=== PATIENT | female | born 1945 | race Caucasian/White ===

== ENCOUNTER 2016-08-11 15:00 | Emergency (ER) ==
[2016-08-11 16:00] LABS: URINE CULTURE NEEDED? NO; URINE MICRO REVIEW NEEDED? NO; URINE SOURCE CLEAN CATCH
[2016-08-11 16:20] LABS: BILIRUBIN URINE NEGATIVE (NEGATIVE); BLOOD URINE NEGATIVE (NEGATIVE); COLOR YELLOW; GLUCOSE URINE NEGATIVE (NEGATIVE); LEUKOCYTES URINE NEGATIVE (NEGATIVE); NITRITE URINE NEGATIVE (NEGATIVE); PROTEIN URINE NEGATIVE (NEGATIVE); SP GRAVITY URINE 1.014; TURBIDITY URINE CLEAR (CLEAR); UROBILINOGEN URINE NORMAL (NORMAL)
[2016-08-11 16:22] LABS: UR EPITHELIAL CELLS <10 /HPF (<10); URINE BACTERIA NEGATIVE /HPF; URINE RBC <10 /HPF (<10); URINE WBC <10 /HPF (<10)
--- NOTE | 2016-08-11 16:30 | PROVIDER DOCUMENTATION ---
HPI-Female /OB/Breast - General Chief Complaint: Female Stated Complaint: BLEED Time Seen by Provider: 08/11/16 16:24 Source: reports: patient Allergies/Adverse Reactions: Patient Allergies Allergy/AdvReac Type Severity Reaction Status Date / Time No Known Allergies Allergy Verified 08/11/16 19:26 Home Medications: Home Medication List Medication Instructions Recorded Confirmed Last Taken Type Lamotrigine [Lamictal] 150 mg PO BID 11/07/12 08/11/16 08/11/16 History Alprazolam [Xanax] 0.5 mg PO TID 02/25/13 08/11/16 08/11/16 History B Complex with Vitamin C [Vitamin 1 each PO DAILY 08/04/13 08/11/16 08/11/16 History B&C] Fluticasone [address] 1 spray CARL DAILY 01/30/15 08/11/16 08/11/16 History [Flonase] Docusate Sodium [Colace] 100 mg PO BID PRN PRN #20 capsule 08/11/16 Unknown Rx Hydrocortisone Supp [Anusol-Hc 25 mg UT BID #30 supp 08/11/16 Unknown Rx Supp] Levothyroxine [Synthroid] 25 microgm PO DAILY 08/11/16 08/11/16 08/11/16 History Phenazopyridine HCl [Pyridium] 100 mg PO TID #6 tablet 08/11/16 Unknown Rx Polyethylene Glycol 3350 [Miralax] 17 gm PO DAILY #14 powd.pack 08/11/16 Unknown Rx Vortioxetine Hydrobromide 5 mg PO QAM 08/11/16 08/11/16 08/11/16 History [Trintellix] - History of Present Illness-Female /OB Nature of Presenting Problem: 70 y/o F c/o blood in urine, dysuria, constipation x 1 day. States that she has been taking laxatives for constipation. Reports some body aches, worse in suprapubic region. LBM was today; hard/guera s/p taking milk of magnesia. Denies any vomiting, fever/chills, cough. States hx of prolapsed uterus. Unsure if bleeding is or rectal in nature. Reports spotting, not bleeding, noted in her underwear. Denies kidney stones. Review of Systems - Adult - REVIEW OF SYSTEMS - ADULT Constitutional: reports: no symptoms reported. denies: chills, fever Eyes: reports: no symptoms reported. denies: blurred vision, double vision Ears, Nose, Mouth & Throat: reports: no symptoms reported. denies: ear pain, nose pain Cardiovascular: reports: no symptoms reported Respiratory: reports: no symptoms reported. denies: cough, shortness of breath Gastrointestinal: reports: see HPI, abdominal pain, constipation. denies: nausea, vomiting Genitourinary: reports: see HPI, dysuria, other. denies: frequency Musculoskeletal: reports: see HPI, back pain (low to mid), muscle aches. denies : joint pain, joint swelling Integumentary: reports: no symptoms reported. denies: nail changes, rash Neurological: reports: no symptoms reported. denies: numbness, paresthesia Psychiatric: reports: no symptoms reported Endocrine: reports: no symptoms reported. denies: cold intolerance, heat intolerance Hematologic/Lymphatic: reports: no symptoms reported. denies: easy bruising, prolonged bleeding Allergic/Immunologic: reports: no symptoms reported All Other Systems: Reviewed and Negative Past History - Adult - PAST MEDICAL HISTORY-ADULT Review of Records: reports: Nursing Assessment Review, Medications Reviewed Major Childhood Illnesses: reports: denies history Cardiovascular: reports: hyperlipidemia, other (tachycardia) Respiratory: reports: denies history Gastrointestinal: reports: denies history Obstetrical/Gynecological: reports: denies history Genitourinary: reports: denies history Musculoskeletal: reports: denies history Neurological: reports: denies history Psychiatric: reports: anxiety, depression Endocrine/Immune: reports: denies history, thyroid disorder Other Conditions: reports: denies history - PRIOR SURGERIES/PROCEDURES Surgical/Procedure History: reports: tonsillectomy, other (d&C) - PRIOR HOSPITALIZATIONS Prior Hospitalizations: reports: none - IMMUNIZATION STATUS Childhood Immunizations: See Nurse Assessment Flu Vaccine: See Nurse Assessment - FAMILY HISTORY Family History: reviewed, not pertinent - SOCIAL HISTORY Smoking: denies Alcohol Use Frequency: never Physical Exam-General - PHYSICAL EXAM-ADULT Initial Vital Signs Reviewed: Yes - CONSTITUTIONAL General Appearance: alert, anxious - EYES Eyes: pink conjunctivae - HEAD, EARS, NOSE, MOUTH & THROAT HENMT: normocephalic/atraumatic, moist mucous membranes - NECK Neck: normal inspection - RESPIRATORY Respiratory: lungs clear, normal breath sounds. negative: crackles, rales, rhonchi, stridor, wheezing - CARDIOVASCULAR Cardiovascular: regular rate, rhythm. negative: bradycardia, tachycardia - GASTROINTESTINAL (ABDOMEN) Abdominal Exam: normal bowel sounds, soft, tenderness (mild, generalized). negative: distended, guarding, rigid, rebound - GENITOURINARY Female Genitalia/Pelvic Exam: external exam normal. negative: active bleeding, blood, discharge, herpes-like ulcerations Rectal Exam: normal rectal tone. negative: black stool, blood streaked stool, hemorrhoids, other (no anal fissures noted) Hemoccult Exam: heme negative stool - MUSCULOSKELETAL Back Exam: normal inspection Extremity: normal gait - SKIN Integumentary: normal color, normal turgor, warm/dry - NEUROLOGIC Neurologic: negative: aphasia - PSYCHIATRIC Psych/Mental Status: normal mood/affect, normal thought content, normal thought process, oriented x 3 Progress - PLAN OF CARE/RESULTS Progress/Plan/Lab Results: Laboratory Tests 08/11/16 15:22 Urine Source CLEAN CATCH Urine Color YELLOW Urine Turbidity CLEAR Urine pH 7.0 Ur Specific [place] 1.014 Urine Protein NEGATIVE Ur Glucose (Stick) NEGATIVE Ur Ketones (Stick) NEGATIVE Urine Blood NEGATIVE Urine Nitrite NEGATIVE Urine Bilirubin NEGATIVE Urobilinogen Dipstick NORMAL Urine Leukocytes NEGATIVE Urine WBC (Auto) <10 Urine RBC (Auto) <10 U Epithel Cells (Auto) <10 Urine Bacteria (Auto) NEGATIVE Orders Category Date Time Status FLAT/UPRIGHT ABD/1 VIEW CHEST [RAD] Stat Exams 08/11/16 16:37 Completed OCCULT BLOOD SCREENING [STOOL] Stat Lab 08/11/16 19:00 Completed UA Reflex [URINALYSIS W/POSS RFLX CULT] [URINALYSIS] Lab 08/11/16 15:22 Completed Stat Vital Signs Temp Pulse Resp BP Pulse Ox 08/11/16 20:15 98.1 F 65 16 116/65 96 08/11/16 15:10 98.1 F 72 16 150/67 97 No Known Allergies Allergy (Verified 08/11/16 19:26) Lamotrigine [Lamictal] 150 mg PO BID 11/07/12 Alprazolam [Xanax] 0.5 mg PO TID 02/25/13 B Complex with Vitamin C [Vitamin B&C] 1 each PO DAILY 08/04/[address] [Flonase] 1 spray CARL DAILY 01/30/15 Docusate Sodium [Colace] 100 mg PO BID PRN PRN #20 capsule 08/11/16 Hydrocortisone Supp [Anusol-Hc Supp] 25 mg UT BID #30 supp 08/11/16 Levothyroxine [Synthroid] 25 microgm PO DAILY 08/11/16 Phenazopyridine HCl [Pyridium] 100 mg PO TID #6 tablet 08/11/16 Polyethylene Glycol 3350 [Miralax] 17 gm PO DAILY #14 powd.pack 08/11/16 Vortioxetine Hydrobromide [Trintellix] 5 mg PO QAM 08/11/16 DISORDER OF THYROID, UNSPECIFIED (08/11/16) HYPERLIPIDEMIA, UNSPECIFIED (08/11/16) ANXIETY DISORDER, UNSPECIFIED (08/11/16) CONSTIPATION, UNSPECIFIED (08/11/16) MYALGIA (08/11/16) ABNORMAL UTERINE AND VAGINAL BLEEDING, UNSPECIFIED (08/11/16) GENERALIZED ABDOMINAL TENDERNESS (08/11/16) UNSPECIFIED ABDOMINAL PAIN (08/11/16) DYSURIA (08/11/16) HEMATURIA, UNSPECIFIED (08/11/16) OTHER FEEDER/FOLDER (CURRENT) DRUG THERAPY (08/11/16) I&O 08/12/16 08/13/16 08/14/16 06:59 06:59 06:59 Output Total 80 Balance -80 - XRAY 1 XRAY Study: Chest, Abdomen Impression: See EMR Report (Mild constipation. No evidence of acute disease. - per Dr. Hyatt) Departure - Departure Time of Disposition Order: 19:53 DIAGNOSIS: Constipation Qualifiers: Constipation type: unspecified constipation type Qualified Code(s): K59.00 - Constipation, unspecified Disposition: HOME 01 Certified Medical Emergency: Emergent Condition: Stable Additional Instructions: Follow up with SAFETY ADMIN ASSISTANT for further evaluation. Take medications as directed. Return if symptoms get worse or bleeding recurs. ED Follow Up Instructions: You have been treated by a care provider in the Emergency Department. These instructions are being provided to you so you can have an understanding of how to care for yourself upon discharge. Upon discharge from the Emergency Department, you are responsible for making arrangements for follow-up care by a physician of your choice. Take all prescribed medications as directed. Return to the Emergency Department immediately for any new or worsening symptoms. You may call the Physician Referral phone number at [phone] to obtain a list of Physicians who are taking new patients. Prescriptions: Hydrocortisone Supp [Anusol-Hc Supp] 25 mg UT BID #30 supp Docusate Sodium [Colace] 100 mg PO BID PRN PRN #20 capsule PRN Reason: Constipation Polyethylene Glycol 3350 [Miralax] 17 gm PO DAILY #14 powd.pack Phenazopyridine HCl [Pyridium] 100 mg PO TID #6 tablet Referrals: Jeremy Cardona MD [Primary Care Provider] - Arash Walsh MD [STAFF PHYSICIAN] - Forms: Return to School/Parent Work Instructions: Constipation, Adult Attestation - Physician/ LENNY Attestation Patient care was provided by Advanced Practice Provider:: Yes Advanced Practice Provider:: Elizabeth Syed Advanced Practice Provider documentation review:: The Mid-level provider documentation, treatment plan and medical decision making was reviewed by the physician who agrees with all treatment and medical decision making by the MLP.
--- NOTE | 2016-08-11 17:21 | Diag Imaging Result Document ---
PROCEDURE NAME: FLAT/UPRIGHT ABD/1 VIEW CHEST - 08/11/2016 FLAT AND UPRIGHT ABDOMEN: FINDINGS: There is some stool throughout the colon. There is no evidence of gastric or small bowel dilatation. No organomegaly or mass is present. There is scoliosis of the lumbar spine with convexity to the left. IMPRESSION: Mild constipation. PA CHEST: The appearance of the chest has not changed significantly since 08/08/2014. IMPRESSION: No evidence of acute disease.
[2016-08-11 20:27] VITALS: BP 116/65
== END 2016-08-11 20:15 | disposition home or self-care (01) ==
LOC: ED 15:00
DX: K59.00 Constipation, unspecified (principal); R30.0 Dysuria; R31.9 Hematuria, unspecified; M79.1 Myalgia; R10.9 Unspecified abdominal pain; N93.9 Abnormal uterine and vaginal bleeding, unspecified; R10.817 Generalized abdominal tenderness; E78.5 Hyperlipidemia, unspecified; Z79.899 Other long term (current) drug therapy; E07.9 Disorder of thyroid, unspecified; F41.9 Anxiety disorder, unspecified
CPT/HCPCS: 74022; 81001; 82270; 99283